=== PATIENT | female | born 1950 | race Caucasian/White ===

== ENCOUNTER 2020-01-17 18:00 | Observation (INO) | payer MEDICARE, OTHER, SELFPAY ==
[2020-01-17] VITALS (10 sets, daily range): BP systolic 103–161; BP diastolic 59–77; PULSE 56–71; RESP 12–24; TEMP 36.7–36.9; O2SAT 93–99; BMI 27.4
--- NOTE | 2020-01-17 18:06 | DI.RAD.S_ITS ---
PROCEDURE: XR CHEST 1V INDICATIONS: chest pain TECHNIQUE: One view of the chest was acquired. COMPARISON: None. FINDINGS: Surgical changes and devices: None. Lungs and pleura: Lungs are clear. There is hyperinflation of the lungs with flattening of the hemidiaphragms compatible with COPD. No pleural effusions or pneumothorax. Mediastinum: Mediastinal contours appear normal. Heart size is normal. Bones and chest wall: No suspicious bony lesions. Overlying soft tissues appear unremarkable. IMPRESSION: 1. Findings compatible with COPD without acute consolidation. Dictated by: Carlos Dallas M.D. on 01/17/2020 at 19:43 Approved by: Carlos Dallas M.D. on 01/17/2020 at 19:43
--- NOTE | 2020-01-17 18:16 | ED.CHESTPAIN ---
HPI - Chest Pain General Chief Complaint: Chest Pain Stated Complaint: Chest pain Time Seen by Provider: 01/17/20 18:01 Source: patient Mode of arrival: Ambulatory Limitations: no limitations History of Present Illness HPI narrative: 69-year-old female nonsmoker with no significant medical history her and a chief complaint of a rather sudden onset retrosternal chest discomfort with radiation to her back that started at about 5:45 p.m. tonight. She denies any exertional symptoms, she denies any provocation or palliation. She denies associated symptoms such as dizziness, weakness, lightheadedness or shortness of breath. She denies nausea, vomiting or unexplained diaphoresis. She denies any recent change in her ability to tolerate exercise. She denies recent travel, cough with hemoptysis history of cancer or blood clot. She has not been exposed to any persons known to have COVID-19. She denies runny nose, sore throat, fever or chills. MD complaint: chest pain Onset (ago): hour(s) Duration: constant Onset: during rest Pain location: substernal Severity: moderate Quality: tightness and aching Pain radiation: back Relieving factors: nothing Exacerbating factors: nothing Treatments prior to arrival chest pain: aspirin (81mg this morning and 2 full dose (325mg) at onset of pain) Related Data Home Medications Medication Instructions Recorded Confirmed simvastatin [Zocor] 40 mg PO BEDTIME 01/17/20 01/17/20 Allergies Allergy/AdvReac Type Severity Reaction Status Date / Time No Known Drug Allergies Allergy Verified 01/17/20 21:45 Review of Systems Constitutional Constitutional: Denies chills, Denies fatigue, Denies fever(s), Denies frequent falls, Denies lethargy and Denies weakness Eyes Eyes: Denies change in vision, Denies eye discharge, Denies irritation and Denies loss of vision ENT Ears, Nose, Mouth, and Throat: Denies change in voice, Denies dizziness, Denies neck pain, Denies sore throat and Denies throat swelling Cardiovascular Cardiovascular: Reports chest pain, Denies irregular heart rhythm, Denies lightheadedness, Denies palpitations, Denies dyspnea, Denies dyspnea on exertion and Denies orthopnea Respiratory Respiratory: Denies cough, Denies dyspnea, Denies dyspnea on exertion and Denies wheezing Gastrointestinal Gastrointestinal: Denies abdominal pain, Denies change in bowel habits, Denies diarrhea, Denies nausea and Denies vomiting Musculoskeletal Musculoskeletal: Denies neck pain and Denies numbness Integumentary/Breasts Skin/Breast: Denies pruritus, Denies erythema, Denies rash and Denies wounds Neurologic Neurologic: Denies behavioral changes, Denies confusion, Denies dizziness, Denies frequent falls, Denies loss of vision, Denies numbness and Denies weakness Psychiatric Psychiatric: Denies anxiety, Denies behavioral changes, Denies confusion, Denies depression, Denies homicidal ideation and Denies suicidal ideation Endocrine Endocrine: Denies fatigue, Denies flushing and Denies palpitations Hematologic/Lymphatic Hematologic/Lymphatic: Denies easy bruising Allergic/Immunologic Allergic/Immunologic: Denies urticaria, Denies throat swelling and Denies wheezing Patient History Social History household members: none Smoking Status: Former smoker Smoking Status: Former smoker alcohol intake frequency: 0-2 drinks per day Substance Use Type: does not use Exam Narrative Exam Narrative: GENERAL: [69] year old patient appears stated age. Well-nourished, well-developed patient, in mild distress. HEAD: Atraumatic. Normocephalic. EYES: Pupils equal round and reactive. Extraocular motions intact. No scleral icterus. No injection or drainage. ENT: Nose without bleeding, purulent drainage. Throat without erythema, tonsillar hypertrophy or exudate. Airway patent. NECK: Trachea midline. Non tender CARDIOVASCULAR: Regular rate and rhythm without murmurs, gallops, or rubs. RESPIRATORY: Clear to auscultation. Breath sounds equal bilaterally. No wheezes, rales, or rhonchi. GASTROINTESTINAL: Abdomen soft, non-tender, nondistended. EXTREMITIES: No edema or joint tenderness. BACK: Nontender without deformity or crepitance. No flank tenderness. NEURO: AOx3. SKIN: No rash or erythema of visible areas Initial Vital Signs Initial Vital Signs: Vital Signs Pulse Rate 69 01/17/20 18:04 Respiratory Rate 22 01/17/20 18:04 Blood Pressure 161/77 H 01/17/20 18:04 Pulse Oximetry 99 01/17/20 18:04 Course Course Course Narrative: HEART Pathway for Early Discharge in Acute Chest Pain from [facility].[email or web address] on 01/17/2020 All calculations should be rechecked by clinician prior to use RESULT SUMMARY: 4 points HEART Pathway Score High risk 12-65% 30-day MACE Admit to hospital or observation. Further testing indicated. INPUTS: History ?> 1 = Moderately suspicious EKG ?> 0 = Normal Age ?> 2 = ?67 Risk factors ?> 1 = 1-2 risk factors Initial troponin ?> 0 = ?normal limit Orders Ordered: ED Orders 01/17/20 17:20 Complete Blood Count AUTO DIFF Stat Comprehensive Metabolic Panel Stat Lipase Stat Partial Thromboplastin Time Stat Prothrombin Time INR Stat Troponin & CK Cardiac Panel Stat 01/17/20 18:01 EKG-12 Lead Stat 01/17/20 18:06 XR chest 1V Stat EKG-12 Lead Stat 01/17/20 18:15 D Dimer Stat 01/17/20 20:19 Troponin I Stat 01/17/20 22:00 COVID19 -ED/INPAT/OR/L&D Stat Aspirin (Aspirin Ec) 81 mg PO DAILY [facility] Enoxaparin Sodium (Lovenox) 40 mg SUBCUT DAILY [facility] Morphine Sulfate (Morphine) 2 mg IV Q5MIN PRN PRN Reason: Chest Pain Naloxone HCl (Narcan) 0.2 mg IV Q2MIN PRN PRN Reason: Opiate Reversal Nitroglycerin (Nitrostat) 0.4 mg SL [id number] PRN PRN Reason: Chest Pain Last Admin: 01/17/20 19:27 Dose: 0.4 mg Documented by: Admin: 01/17/20 18:31 Dose: 0.4 mg Documented by: DOUG Nitroglycerin (Nitrostat) 0.4 mg SL [id number] PRN PRN Reason: Chest Pain Ondansetron HCl (Zofran) 4 mg IV Q8HR PRN PRN Reason: Nausea And Vomiting Reevaluation(s) Reevaluation #1: pain from 5/10 to 3/10 after 1st nitro. No headache Vital Signs Vital signs: Vital Signs - 8 hr 01/17/20 18:04 01/17/20 18:35 01/17/20 19:00 Pulse Rate 69 69 58 L Respiratory Rate 22 23 12 Blood Pressure 161/77 H Pulse Oximetry 99 96 96 01/17/20 19:30 01/17/20 19:42 01/17/20 20:00 Pulse Rate 71 64 57 L Respiratory Rate 23 23 24 Blood Pressure 103/59 L Pulse Oximetry 93 94 94 01/17/20 20:09 01/17/20 20:30 Pulse Rate 57 L 56 L Respiratory Rate 19 23 Blood Pressure 122/64 Pulse Oximetry 94 96 MDM - Chest Pain Lab Data Result diagrams: 01/17/20 17:20 01/17/20 17:20 Labs: Lab Results 01/17/20 01/17/20 01/17/20 Range/Units 17:20 17:20 17:20 WBC 9.9 (4.5-11.0) X10^3/uL RBC 4.40 (4.0-5.2) X10^6/uL Hgb 13.5 (12.0-16.0) g/dL Hct 39.7 (36-46) % MCV 90.4 (80-100) fL MCH 30.6 (26-34) PG MCHC 33.9 (30-36) % RDW 13.2 (11.6-14.8) % Plt Count 331 (150-400) X10^3/uL Neut % (Auto) 61.0 (50-75) % Lymph % (Auto) 29.5 (25-40) % [place] % (Auto) 7.5 (3-14) % Eos % (Auto) 1.3 L (2-4) % Baso % (Auto) 0.7 (0-2) % Neut # (Auto) 6100 (5051-5723) /uL Lymph # (Auto) 2900 (8036-2137) /uL [place] # (Auto) 700 (0-900) /uL Eos # (Auto) 100 (0-450) /uL Baso # (Auto) 100 (0-100) /uL PT 11.6 (10.1-12.7) SECONDS INR 1.0 (0.9-1.3) APTT 30 (26.4-36.2) SECONDS D-Dimer (<230) ng/mL Sodium 136 L (137-145) mmol/L Potassium 4.5 (3.4-5.1) mmol/L Chloride 102 (98-107) mmol/L Carbon Dioxide 28 (22-32) mmol/L BUN 14 (7-17) mg/dL Creatinine 0.78 (0.52-1.04) mg/dL Estimated GFR > 60.0 (>60) mL/min BUN/Creatinine Ratio 17.9 (6-22) Glucose 106 (80-110) mg/dL Hemoglobin A1c (4.0-6.0) % Calcium 9.6 (8.4-10.2) mg/dL Total Bilirubin 1.0 (0.2-1.3) mg/dL AST 32 (14-36) IU/L ALT 21 (<35) IU/L Alkaline Phosphatase 57 (38-126) U/L Total Creatine Kinase 77 (30-135) U/L CK-MB (CK-2) TNP CK-MB (CK-2) Rel Index TNP Troponin I < 0.012 (0.01-0.034) ng/mL Total Protein 7.9 (6.3-8.2) g/dL Albumin 4.6 (3.5-5.0) g/dL Globulin 3.3 (1.7-4.1) g/dL Albumin/Globulin Ratio 1.4 (1.0-2.8) Lipase 67 (23-300) U/L COVID-19 PCR (Negative) 01/17/20 01/17/20 01/17/20 Range/Units 17:20 18:15 20:19 WBC (4.5-11.0) X10^3/uL RBC (4.0-5.2) X10^6/uL Hgb (12.0-16.0) g/dL Hct (36-46) % MCV (80-100) fL MCH (26-34) PG MCHC (30-36) % RDW (11.6-14.8) % Plt Count (150-400) X10^3/uL Neut % (Auto) (50-75) % Lymph % (Auto) (25-40) % [place] % (Auto) (3-14) % Eos % (Auto) (2-4) % Baso % (Auto) (0-2) % Neut # (Auto) (1982-9969) /uL Lymph # (Auto) (3791-6284) /uL [place] # (Auto) (0-900) /uL Eos # (Auto) (0-450) /uL Baso # (Auto) (0-100) /uL PT (10.1-12.7) SECONDS INR (0.9-1.3) APTT (26.4-36.2) SECONDS D-Dimer 269 H (<230) ng/mL Sodium (137-145) mmol/L Potassium (3.4-5.1) mmol/L Chloride (98-107) mmol/L Carbon Dioxide (22-32) mmol/L BUN (7-17) mg/dL Creatinine (0.52-1.04) mg/dL Estimated GFR (>60) mL/min BUN/Creatinine Ratio (6-22) Glucose (80-110) mg/dL Hemoglobin A1c 5.1 (4.0-6.0) % Calcium (8.4-10.2) mg/dL Total Bilirubin (0.2-1.3) mg/dL AST (14-36) IU/L ALT (<35) IU/L Alkaline Phosphatase (38-126) U/L Total Creatine Kinase (30-135) U/L CK-MB (CK-2) CK-MB (CK-2) Rel Index Troponin I < 0.012 (0.01-0.034) ng/mL Total Protein (6.3-8.2) g/dL Albumin (3.5-5.0) g/dL Globulin (1.7-4.1) g/dL Albumin/Globulin Ratio (1.0-2.8) Lipase (23-300) U/L COVID-19 PCR (Negative) 01/17/20 Range/Units 22:00 WBC (4.5-11.0) X10^3/uL RBC (4.0-5.2) X10^6/uL Hgb (12.0-16.0) g/dL Hct (36-46) % MCV (80-100) fL MCH (26-34) PG MCHC (30-36) % RDW (11.6-14.8) % Plt Count (150-400) X10^3/uL Neut % (Auto) (50-75) % Lymph % (Auto) (25-40) % [place] % (Auto) (3-14) % Eos % (Auto) (2-4) % Baso % (Auto) (0-2) % Neut # (Auto) (3503-7734) /uL Lymph # (Auto) (3051-6261) /uL [place] # (Auto) (0-900) /uL Eos # (Auto) (0-450) /uL Baso # (Auto) (0-100) /uL PT (10.1-12.7) SECONDS INR (0.9-1.3) APTT (26.4-36.2) SECONDS D-Dimer (<230) ng/mL Sodium (137-145) mmol/L Potassium (3.4-5.1) mmol/L Chloride (98-107) mmol/L Carbon Dioxide (22-32) mmol/L BUN (7-17) mg/dL Creatinine (0.52-1.04) mg/dL Estimated GFR (>60) mL/min BUN/Creatinine Ratio (6-22) Glucose (80-110) mg/dL Hemoglobin A1c (4.0-6.0) % Calcium (8.4-10.2) mg/dL Total Bilirubin (0.2-1.3) mg/dL AST (14-36) IU/L ALT (<35) IU/L Alkaline Phosphatase (38-126) U/L Total Creatine Kinase (30-135) U/L CK-MB (CK-2) CK-MB (CK-2) Rel Index Troponin I (0.01-0.034) ng/mL Total Protein (6.3-8.2) g/dL Albumin (3.5-5.0) g/dL Globulin (1.7-4.1) g/dL Albumin/Globulin Ratio (1.0-2.8) Lipase (23-300) U/L COVID-19 PCR Negative (Negative) Imaging Data Chest x-ray: Radiologist's Impression: [address] [address] XRay Report Signed Patient: Kim Pelaez EMR#: [id number] : [id number]:[id number] Age/Sex: 69 / FDate of Service: 01/17/20 Loc: ED Accession Number: [id number] Procedure: XR chest 1V Ordering Provider: Rip Leggett D.O. PROCEDURE: XR CHEST 1V INDICATIONS: chest pain TECHNIQUE: One view of the chest was acquired. COMPARISON: None. FINDINGS: Surgical changes and devices: None. Lungs and pleura: Lungs are clear. There is hyperinflation of the lungs with flattening of the hemidiaphragms compatible with COPD. No pleural effusions or pneumothorax. Mediastinum: Mediastinal contours appear normal. Heart size is normal. Bones and chest wall: No suspicious bony lesions. Overlying soft tissues appear unremarkable. IMPRESSION: 1. Findings compatible with COPD without acute consolidation. Dictated by: Carlos Dallas M.D. on 01/17/2020 at 19:43 Approved by: Carlos Dallas M.D. on 01/17/2020 at 19:43 Discharge Plan Departure Patient Disposition: Admitted as Observation Clinical Impression: Chest pain Qualifiers: Chest pain type: unspecified Qualified Code(s): R07.9 - Chest pain, unspecified Discharge Date/Time: 01/17/20 22:35 Referrals: Martha Haskins MD [Primary Care Provider] - Admit Date/Time: 01/17/20 22:02 Admit Provider: Kalani Martinez
--- NOTE | 2020-01-17 18:24 | PC.NURSE ---
iv placed labs drawn md at bedside for eval pt resting in bed vs on planner/scheduler family at bedside for eval
[2020-01-17 18:27] LABS: Add Manual Diff / Slide Review NO; Basophils Absolute Auto 100 /uL (0-100); Basophils Percent Auto 0.7 % (0-2); Eosinophils Absolute Auto 100 /uL (0-450); Eosinophils Percent Auto 1.3 % (2-4); Hematocrit 39.7 % (36-46); Hemoglobin 13.5 g/dL (12.0-16.0); Lymphocytes Absolute Auto 2900 /uL (1100-4500); Lymphocytes Percent Auto 29.5 % (25-40); Mean Corpuscular HGB Conc 33.9 % (30-36); Mean Corpuscular Hemoglobin 30.6 PG (26-34); Mean Corpuscular Volume 90.4 fL (80-100); Monocytes Absolute Auto 700 /uL (0-900); Monocytes Percent Auto 7.5 % (3-14); Neutrophils Absolute Auto 6100 /uL (1500-7000); Platelet Count 331 X10^3/uL (150-400); Red Cell Distribution Width 13.2 % (11.6-14.8); White Blood Cell Count 9.9 X10^3/uL (4.5-11.0)
[2020-01-17] MEDS: NITROGLYCERIN 0.4 MG SL TAB SL ×2 (18:31→19:27)
[2020-01-17 18:36] LABS: Prothrombin Time 11.6 SECONDS (10.1-12.7)
[2020-01-17 18:39] LABS: PTT Partial Thromboplastin Tim 30 SECONDS (26.4-36.2)
[2020-01-17 18:40] LABS: Alanine Aminotransferase 21 IU/L (<35); Albumin 4.6 g/dL (3.5-5.0); Albumin Globulin Ratio 1.4 (1.0-2.8); Alkaline Phosphatase 57 U/L (38-126); Aspartate Aminotransferase 32 IU/L (14-36); BUN Creatinine Ratio 17.9 (6-22); Blood Urea Nitrogen 14 mg/dL (7-17); Calcium 9.6 mg/dL (8.4-10.2); Carbon Dioxide 28 mmol/L (22-32); Chloride 102 mmol/L (98-107); Creatine Kinase 77 U/L (30-135); Estimated Glomerular Filt Rate > 60.0 mL/min (>60); Globulin 3.3 g/dL (1.7-4.1); Glucose 106 mg/dL (80-110); HEMOLYSIS < 15 (0-50); Lipase 67 U/L (23-300); Potassium 4.5 mmol/L (3.4-5.1); Sodium 136 mmol/L (137-145); Total Protein 7.9 g/dL (6.3-8.2)
[2020-01-17 18:42] LABS: D Dimer 269 ng/mL (<230)
[2020-01-17 18:52] LABS: Troponin I < 0.012 ng/mL (0.01-0.034)
[2020-01-17 20:49] LABS: Troponin I < 0.012 ng/mL (0.01-0.034)
--- NOTE | 2020-01-17 21:01 | PC.NURSE ---
md at bedside reviewing results with pt
[2020-01-17 22:22] LABS: COVID19 -Nasal RAPID Negative (Negative)
[2020-01-17 22:26] LABS: Hemoglobin A1C% w Est Avg Glu 5.1 % (4.0-6.0)
--- NOTE | 2020-01-17 22:59 | P.HP_ITS ---
History of Present Illness History of Present Illness Date Patient Seen: 01/17/20 Time Patient Seen: 22:59 Date of Onset of Symptoms: 01/17/20 Chief complaint: Chest pain Narrative: Kim Pelaez is a 69 y.o. female with hyperlipidemia who was in her usual state of health when she was [place] when she developed crampy- like pressure in her chest. It persisted until she presented to the ED and was administered 2 does of nitroglycerin. She denies headaches or visual changes, shortness of breath, cough, dyspepsia, nausea or vomiting, dysurea, diarrhea or constipation. Last lipid panel done 14 months ago appeared to have cholesterol under good control. Patient was stated to have a HEART score of 4. EKG reviewed and other than sinus bradycardia, and appeared normal. Patient's symptoms resolved after 2 doses of nitroglycerin. Chest x-ray indicated COPD however this would be unlikely given patient's nonsmoking history unless there was a secondhand smoke exposure. Patient was afebrile, blood pressure 131/69, heart rate 57, respiratory rate 16, oxygen saturation 90% on room air, she weighs 68 kg with a BMI of 27.4. CBC largely within normal limits, D-dimer was technically elevated but if age adjusted was normal, BMP was within normal limits, she has a hemoglobin A1c of 5.1, liver enzymes within normal limits, troponin x2 was 0.012 and will not be repeate, COVID-19 is negative. Patient History Medical History Hyperlipidemia (Chronic) Surgical History Hx of bilateral hip replacements (Acute) Family & Social History Family History Mother Thyroid disease Father Congestive heart failure Social History: household members none Prior Living Arrangements House Safety & Behavioral: Feels Safe in Current Yes Environment Been Physically Hurt or No Threatened By a Person Suicidal Ideation Description None Suicide Plan Description No Plan Tobacco & Substance use: Smoking Status Former smoker alcohol intake frequency 0-2 drinks per day Substance Use Type does not use Meds Home Medications and Allergies Home Medications Medication Instructions Recorded Confirmed Type simvastatin [Zocor] 40 mg PO BEDTIME 01/17/20 01/17/20 History Allergies Allergy/AdvReac Type Severity Reaction Status Date / Time No Known Drug Allergies Allergy Verified 01/17/20 21:45 Review of Systems Review of Systems ROS: Yes All systems reviewed with the patient and are negative except as otherwise documented Exam Vital Signs (past 8 hours): - 01/17/20 18:04 01/17/20 18:35 01/17/20 19:00 Temperature Pulse Rate 69 69 58 L Respiratory Rate 22 23 12 Blood Pressure 161/77 H Pulse Oximetry 99 96 96 01/17/20 19:30 01/17/20 19:42 01/17/20 20:00 Temperature Pulse Rate 71 64 57 L Respiratory Rate 23 23 24 Blood Pressure 103/59 L Pulse Oximetry 93 94 94 01/17/20 20:09 01/17/20 20:30 01/17/20 22:33 Temperature 98.5 F Pulse Rate 57 L 56 L 57 L Respiratory Rate 19 23 16 Blood Pressure 122/64 131/69 Pulse Oximetry 94 96 98 Oxygen Delivery Method Room Air Oxygen Flow Rate 0 Objective Labs Result Diagrams: 01/17/20 17:20 01/17/20 17:20 Labs: Laboratory Results - last 24 hr 01/17/20 01/17/20 01/17/20 17:20 17:20 17:20 WBC 9.9 RBC 4.40 Hgb 13.5 Hct 39.7 MCV 90.4 MCH 30.6 MCHC 33.9 RDW 13.2 Plt Count 331 Neut % (Auto) 61.0 Lymph % (Auto) 29.5 [place] % (Auto) 7.5 Eos % (Auto) 1.3 L Baso % (Auto) 0.7 Neut # (Auto) 6100 Lymph # (Auto) 2900 [place] # (Auto) 700 Eos # (Auto) 100 Baso # (Auto) 100 PT 11.6 INR 1.0 APTT 30 D-Dimer Sodium 136 L Potassium 4.5 Chloride 102 Carbon Dioxide 28 BUN 14 Creatinine 0.78 Estimated GFR > 60.0 BUN/Creatinine Ratio 17.9 Glucose 106 Hemoglobin A1c Calcium 9.6 Total Bilirubin 1.0 AST 32 ALT 21 Alkaline Phosphatase 57 Total Creatine Kinase 77 CK-MB (CK-2) TNP CK-MB (CK-2) Rel Index TNP Troponin I < 0.012 Total Protein 7.9 Albumin 4.6 Globulin 3.3 Albumin/Globulin Ratio 1.4 Lipase 67 COVID-19 PCR 01/17/20 01/17/20 01/17/20 17:20 18:15 20:19 WBC RBC Hgb Hct MCV MCH MCHC RDW Plt Count Neut % (Auto) Lymph % (Auto) [place] % (Auto) Eos % (Auto) Baso % (Auto) Neut # (Auto) Lymph # (Auto) [place] # (Auto) Eos # (Auto) Baso # (Auto) PT INR APTT D-Dimer 269 H Sodium Potassium Chloride Carbon Dioxide BUN Creatinine Estimated GFR BUN/Creatinine Ratio Glucose Hemoglobin A1c 5.1 Calcium Total Bilirubin AST ALT Alkaline Phosphatase Total Creatine Kinase CK-MB (CK-2) CK-MB (CK-2) Rel Index Troponin I < 0.012 Total Protein Albumin Globulin Albumin/Globulin Ratio Lipase COVID-19 PCR 01/17/20 22:00 WBC RBC Hgb Hct MCV MCH MCHC RDW Plt Count Neut % (Auto) Lymph % (Auto) [place] % (Auto) Eos % (Auto) Baso % (Auto) Neut # (Auto) Lymph # (Auto) [place] # (Auto) Eos # (Auto) Baso # (Auto) PT INR APTT D-Dimer Sodium Potassium Chloride Carbon Dioxide BUN Creatinine Estimated GFR BUN/Creatinine Ratio Glucose Hemoglobin A1c Calcium Total Bilirubin AST ALT Alkaline Phosphatase Total Creatine Kinase CK-MB (CK-2) CK-MB (CK-2) Rel Index Troponin I Total Protein Albumin Globulin Albumin/Globulin Ratio Lipase COVID-19 PCR Negative Assessment & Plan Assessment & Plan narrative: Kim Pelaez is a 69-year-old female with hyperlipidemia well controlled who will be observed overnight for chest pain. Chest pin r/o ACS -Echo in am -Start ASA 81 mg -Received nitro X 2 in the ED with resolution of chest pain -EKG shows no ischemic changes High blood pressure without a diagnosis of hypertension -She is currently normotensive HLD -Lipid panel, pending -Start/continue simvastatin 40 mg po at bedtime Risk stratification -Fasting lipid panel pending for the am. -A1c was 5.1% VTE prophylaxis: Caprini risk score: 2 low risk Enoxaparin 40 mg subQ daily Consults: none Patient is observation status as her stay is not likely to exceed 2 midnights. FEN: saline lock, heart healty diet, BMP and magnesium in the am. Dispo: probable discharge to home with close followup with her PCP to set up a stress test Code Status: Full code as discussed with patient Quality VTE Deep Vein Thrombosis/Pulmonary Embolism Present on Admission: No
[2020-01-18] MEDS: ACETAMINOPHEN 325 MG TABLET 650 MG PO (00:27)
[2020-01-18 04:30] VITALS: BP 129/74; PULSE 66; RESP 16; TEMP 36.7; O2SAT 96
[2020-01-18 06:07] LABS: Add Manual Diff / Slide Review NO; Basophils Absolute Auto 100 /uL (0-100); Basophils Percent Auto 0.6 % (0-2); Eosinophils Absolute Auto 100 /uL (0-450); Eosinophils Percent Auto 1.3 % (2-4); Hematocrit 38.1 % (36-46); Hemoglobin 12.7 g/dL (12.0-16.0); Lymphocytes Absolute Auto 2900 /uL (1100-4500); Mean Corpuscular HGB Conc 33.2 % (30-36); Mean Corpuscular Volume 90.4 fL (80-100); Monocytes Absolute Auto 800 /uL (0-900); Monocytes Percent Auto 7.9 % (3-14); Neutrophils Absolute Auto 6100 /uL (1500-7000); Neutrophils Percent Auto 61.2 % (50-75); Platelet Count 305 X10^3/uL (150-400); Red Blood Cell Count 4.21 X10^6/uL (4.0-5.2); Red Cell Distribution Width 13.4 % (11.6-14.8); White Blood Cell Count 9.9 X10^3/uL (4.5-11.0)
[2020-01-18 06:14] LABS: BUN Creatinine Ratio 14.1 (6-22); Blood Urea Nitrogen 10 mg/dL (7-17); Calcium 9.3 mg/dL (8.4-10.2); Carbon Dioxide 28 mmol/L (22-32); Chloride 106 mmol/L (98-107); Estimated Glomerular Filt Rate > 60.0 mL/min (>60); Glucose 93 mg/dL (80-110); HEMOLYSIS < 15 (0-50); Magnesium 2.2 mg/dL (1.6-2.3); Sodium 137 mmol/L (137-145)
[2020-01-18 06:28] LABS: Cholesterol 163 mg/dL (140-199); HDL Cholesterol 69 mg/dL (40-60); LDL Cholesterol Calculated 75 mg/dL (<100); Triglycerides 96 mg/dL (35-150)
[2020-01-18 08:29] VITALS: BP 129/69; PULSE 106; RESP 16; TEMP 36.3; O2SAT 96
[2020-01-18 08:51] LABS: Creatine Kinase 51 U/L (30-135)
[2020-01-18 09:02] LABS: Troponin I < 0.012 ng/mL (0.01-0.034)
[2020-01-18] MEDS: ASPIRIN EC 81 MG TABLET PO (09:47)
[2020-01-18] MEDS: SODIUM CHLORIDE 0.9% FLUSH 10 ML IV (09:48)
--- NOTE | 2020-01-18 11:21 | DI.ECHO.S_ITS ---
Echocardiogram Report + + :Name: FLAKO CORRAL Study Date: 01/18/2020 Height: 62 in : :[facility] Weight: 150 lb : : Gender: Female BSA: 1.7 m2 : :: 1950 Age: 69 yrs BP: 129/69 mmHg: :Reason For Study: CHEST PAIN : :Ordering Physician: : :SAULISTBRENDA Performed By: Mercedes Montana : :Referring: MERRY VALENCIA : + + Interpretation Summary The left ventricle is normal in size and wall thickness. The ejection fraction is estimated to be 55-60%. The right ventricle is normal in size and function. There is mild tricuspid regurgitation. The right ventricular systolic pressure is estimated to be at least 25 mmHg based on an estimated right atrial pressure of 3 mm Hg. Mild atherosclerotic plaque(s) in the aortic arch. Procedure: A two-dimensional transthoracic echocardiogram with color flow and Doppler was performed. The study quality was technically adequate. There is no prior echocardiogram noted for this patient. The patient was in sinus bradycardia with heart rates between 57-65 bpm during the exam. Left Ventricle: The left ventricle is normal in size and wall thickness. There is no thrombus. A false chord is noted (normal variant). The ejection fraction is estimated to be 55-60%. There are no focal wall motion abnormalities. MV E/A: 1.2 Med Peak E' José Miguel: 8.2 cm/sec E/E' med: 10.0. Right Ventricle: The right ventricle is normal in size and function. Atria: The left atrial size is normal. Right atrial size is normal. There is no Doppler evidence for an interatrial shunt. Mitral Valve: The mitral valve is normal in structure and function. There is trace mitral regurgitation. Aortic Valve: The aortic valve is trileaflet. The aortic valve opens well. There is no aortic valve stenosis. No aortic regurgitation is present. Tricuspid Valve: The tricuspid valve is normal in structure and function. The right ventricular systolic pressure is estimated to be at least 25 mmHg based on an estimated right atrial pressure of 3 mm Hg. There is mild tricuspid regurgitation. Pulmonic Valve: The pulmonic valve leaflets are thin and pliable; valve motion is normal. There is trace pulmonic regurgitation. Great Vessels: The aortic root is normal size. The dimensions of the ascending aorta are normal. Mild atherosclerotic plaque(s) in the aortic arch. The IVC is of normal diameter and collapses greater than 50% with a sniff. This suggests a low right atrial pressure of 3 mm Hg. Pericardium/ Pleura There is no pericardial effusion. There is no pleural effusion. MMode/2D Measurements & Calculations LVIDd: 5.0 cm LVOT diam: 1.9 cm LVIDs: 3.2 cm Ao root diam: 3.0 cm FS: 36.0 % asc Aorta Diam: 3.1 cm EPSS: 0.46 cm Ao Arch Diam (Prox Trans): 2.8 cm IVSd: 0.55 cm LVPWd: 0.85 cm LV arellano. diameter/BSA (cm/m^2): 3.0 LV sys. diameter/BSA (cm/m^2): 1.9 LA A2 area: 16.3 cm2 RA long axis: 4.6 cm LA A4 area: 14.5 cm2 RA area: 14.0 cm2 LA length (vol): 4.8 cm RA vol: 36.3 ml LA vol: 41.5 ml RA : 21.5 ml/m2 LA vol index: 24.5 ml/m2 IVC diam: 1.4 cm RVD1 (basal): 3.1 cm TAPSE: 1.8 cm Doppler Measurements & Calculations Ao V2 max: 148.2 cm/sec LVOT Max José Miguel: 116.3 cm/sec Ao V2 mean: 93.9 cm/sec LV V1 max P.4 mmHg Ao max P.8 mmHg LV V1 VTI: 26.9 cm Ao mean P.2 mmHg YANE(I,D): 2.3 cm2 Ao V2 VTI: 33.6 cm YANE(V,D): 2.3 cm2 sev ratio: 0.80 YANE indexed to BSA (cm^2/m^2): 1.4 MV E max josé miguel: 82.7 cm/sec TR max josé miguel: 234.0 cm/sec MV A max josé miguel: 67.0 cm/sec TR max P.9 mmHg MV E/A: 1.2 PA V2 max: 78.7 cm/sec Med Peak E' José Miguel: 8.2 cm/sec PA V2 mean: 46.7 cm/sec E/E' med: 10.0 PA mean P.1 mmHg Lat Peak E' José Miguel: 9.6 cm/sec PA pr(Accel): 56.7 mmHg E/E' lat: 8.7 E/e' average: 9.3 MV dec time: 0.21 sec SV(LVOT): 77.1 ml Reading Physician:02:34 PM
--- NOTE | 2020-01-18 12:42 | CM.DANOTE ---
DCP: Case received, EMR reviewed and met with patient. Introduced self and role. Was able to meet with patient to obtain information regarding her baseline activity status prior to hospitalization. DCP assessment completed with information currently available. Patient is a 69 year old female who admitted yesterday evening to the care of the hospitalist team. PCP: Dr. Martha Haskins. Payer: confirmed: Medicare/[facility]. Patient came to the hospital via private vehicle secondary to her having chest pain. She is here for a cardiac work up, and an echo is planned. Met with patient in her room. She is alert and oriented, eager to go home. She is independent, and resids in [place] with her spouse, Dave. He was at bedside during team rounds. She drives, and is retired. P: Patient is to be discharged home today after all of her testing is complete. Nanda Sandoval RN/Merch[employer] Flow Team Member
[2020-01-18 12:45] VITALS: BP 123/73; PULSE 70; RESP 16; TEMP 36.1; O2SAT 97
--- NOTE | 2020-01-18 15:17 | P.DS_ITS ---
History of Present Illness History of Present Illness Date Patient Seen: 01/17/20 Chief complaint: Chest pain Narrative: Written by Kalani HAILE: Kim Pelaez is a 69 y.o. 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 It persisted until she presented to the ED and was administered 2 does of nitroglycerin. She denies headaches or visual changes, shortness of breath, cough, dyspepsia, nausea or vomiting, dysurea, diarrhea or constipation. Last lipid panel done 14 months ago appeared to have cholesterol under good control. Patient was stated to have a HEART score of 4. EKG reviewed and other than sinus bradycardia, and appeared normal. Patient's symptoms resolved after 2 doses of nitroglycerin. Chest x-ray indicated COPD however this would be u nlikely given patient's nonsmoking history unless there was a secondhand smoke exposure. Patient was afebrile, blood pressure 131/69, heart rate 57, respiratory rate 16, oxygen saturation 90% on room air, she weighs 68 kg with a BMI of 27.4. CBC largely within normal limits, D-dimer was technically elevated but if age adjusted was normal, BMP was within normal limits, she has a hemoglobin A1c of 5.1, liver enzymes within normal limits, troponin x2 was 0.012 and will not be repeate, COVID-19 is negative. Discharge Providers Provider Date of admission: 01/17/20 22:02 Discharge Date: 01/18/20 Primary care physician: Martha Haskins MD Discharge provider: Yuliana Lemos DO Summary Hospital Course Discharge Diagnosis: 1. Acute chest pain, present on admission. Resolved. 2. Ruled out hypertension. 3. Hyperlipidemia, chronic, present on admission. Stable. Hospital Course: Serene Pelaez is a 69-year-old female with a past medical history significant for hyperlipidemia who presented to ED with sudden onset substernal chest discomfort with radiation to her back. 1. Acute chest pain, present on admission. Resolved. -Patient presented with sudden onset substernal chest discomfort with radiation to her back and no other associated symptoms and relieved with SL nitroglycerin x 2. -Cardiac risk factors include: Hyperlipidemia -EKG demonstrated sinus rhythm without acute ischemic changes such as ST elevation or depression. Continued to monitor closely on telemetry. Patient remained in sinus rhythm throughout hospitalization without significant ectopy. -Trended serial troponins x3 which were negative < 0.012. -Risk stratified with hemoglobin A1c which was normal at 5.1% indicative of prediabetes and and fasting lipid panel which demonstrated fair lipid control with: Total cholesterol 163, triglyceride 96, LDL 103 (goal <100) and HDL 69. -Echocardiogram unremarkable and did not demonstrate any wall motion abnormalities. LV is normal size, wall thickness and function with EF 55-60%, no focal wall motion abnormalities, RV is normal size and function, mild tricuspid regurgitation, RVSP is estimated to be at least 25 mmHg based on an estimated right atrial pressure of 3 mm Hg, mild atherosclerotic plaque(s) in the aortic arch. -Ordered nitroglycerin 0.4 mg sublingual every 5 minutes as needed for chest pain and morphine 2 mg every 5 minutes as needed for chest pain not relieved wit h nitroglycerin. Discharged home with prescription of nitroglycerin. -Continued aspirin 81 mg weekly and and simvastatin 40 mg daily at bedtime. -Recommended outpatient cardiac stress test in the next 1-2 weeks per PCP. 2. Ruled out hypertension. -Patient had one elevated BP measurement on admission 161/77 and normalized. She remained normotensive throughout hospitlization. 3. Hyperlipidemia, chronic, present on admission. Stable. -Fasting lipid panel demonstated fair lipid control as above. -Continued home simvastatin 40 mg daily at bedtime and recommended and counseled on lifestyle modification including: diet and exercise. Exam Vital Signs (past 8 hours): - 01/18/20 08:29 01/18/20 12:45 Temperature 97.3 F L 97.0 F L Pulse Rate 106 H 70 Respiratory Rate 16 16 Blood Pressure 129/69 123/73 Pulse Oximetry 96 97 Oxygen Delivery Method Room Air Oxygen Flow Rate 0 Narrative Exam Narrative: General: Middle aged female sitting in bed and in no acute distress, well- developed, well-nourished, appropriately interactive. HEENT: Normocephalic, atraumatic. External ears without defect. Pupils equal, round, and reactive to light. Anicteric sclerae, moist conjunctivae, and no lid lag. Oropharynx free of erythema and cobble stoning with moist mucosa. Neck: Supple with full range of motion. No jugular venous distension. No bruits. No lymphadenopathy or thyromegaly. Cardiovascular: Regular rate and rhythm without murmurs, rubs, or gallops appreciated Pulmonary: Clear to auscultation bilaterally without crackles, wheezes, or rhonchi. Normal respiratory effort with no use of accessory muscles. Abdomen: Soft, bowel tones present, nontender, nondistended. No hepatosplenomegaly or masses appreciated. Extremities: No clubbing, cyanosis, or edema. Skin: Normal temperature, turgor, and texture; no rash, ulcers, or subcutaneous nodules appreciated. Neurological: Cranial nerves grossly intact. Psychiatric: Normal mood and affect. Alert and oriented to person, place, and time. Objective Labs Result Diagrams: 01/18/20 05:33 01/18/20 05:33 Labs: Laboratory Results - last 24 hr 01/17/20 01/17/20 01/17/20 17:20 17:20 17:20 WBC 9.9 RBC 4.40 Hgb 13.5 Hct 39.7 MCV 90.4 MCH 30.6 MCHC 33.9 RDW 13.2 Plt Count 331 Neut % (Auto) 61.0 Lymph % (Auto) 29.5 [place] % (Auto) 7.5 Eos % (Auto) 1.3 L Baso % (Auto) 0.7 Neut # (Auto) 6100 Lymph # (Auto) 2900 [place] # (Auto) 700 Eos # (Auto) 100 Baso # (Auto) 100 PT 11.6 INR 1.0 APTT 30 D-Dimer Sodium 136 L Potassium 4.5 Chloride 102 Carbon Dioxide 28 BUN 14 Creatinine 0.78 Estimated GFR > 60.0 BUN/Creatinine Ratio 17.9 Glucose 106 Hemoglobin A1c Calcium 9.6 Magnesium Total Bilirubin 1.0 AST 32 ALT 21 Alkaline Phosphatase 57 Total Creatine Kinase 77 CK-MB (CK-2) TNP CK-MB (CK-2) Rel Index TNP Troponin I < 0.012 Total Protein 7.9 Albumin 4.6 Globulin 3.3 Albumin/Globulin Ratio 1.4 Triglycerides Cholesterol LDL Cholesterol, Calc HDL Cholesterol Lipase 67 COVID-19 PCR 01/17/20 01/17/20 01/17/20 17:20 18:15 20:19 WBC RBC Hgb Hct MCV MCH MCHC RDW Plt Count Neut % (Auto) Lymph % (Auto) [place] % (Auto) Eos % (Auto) Baso % (Auto) Neut # (Auto) Lymph # (Auto) [place] # (Auto) Eos # (Auto) Baso # (Auto) PT INR APTT D-Dimer 269 H Sodium Potassium Chloride Carbon Dioxide BUN Creatinine Estimated GFR BUN/Creatinine Ratio Glucose Hemoglobin A1c 5.1 Calcium Magnesium Total Bilirubin AST ALT Alkaline Phosphatase Total Creatine Kinase CK-MB (CK-2) CK-MB (CK-2) Rel Index Troponin I < 0.012 Total Protein Albumin Globulin Albumin/Globulin Ratio Triglycerides Cholesterol LDL Cholesterol, Calc HDL Cholesterol Lipase COVID-19 PCR 01/17/20 01/18/20 01/18/20 22:00 05:33 05:33 WBC 9.9 RBC 4.21 Hgb 12.7 Hct 38.1 MCV 90.4 MCH 30.0 MCHC 33.2 RDW 13.4 Plt Count 305 Neut % (Auto) 61.2 Lymph % (Auto) 29.0 [place] % (Auto) 7.9 Eos % (Auto) 1.3 L Baso % (Auto) 0.6 Neut # (Auto) 6100 Lymph # (Auto) 2900 [place] # (Auto) 800 Eos # (Auto) 100 Baso # (Auto) 100 PT INR APTT D-Dimer Sodium Potassium Chloride Carbon Dioxide BUN Creatinine Estimated GFR BUN/Creatinine Ratio Glucose Hemoglobin A1c Calcium Magnesium Total Bilirubin AST ALT Alkaline Phosphatase Total Creatine Kinase CK-MB (CK-2) CK-MB (CK-2) Rel Index Troponin I Total Protein Albumin Globulin Albumin/Globulin Ratio Triglycerides 96 Cholesterol 163 LDL Cholesterol, Calc 75 HDL Cholesterol 69 H Lipase COVID-19 PCR Negative 01/18/20 01/18/20 05:33 05:33 WBC RBC Hgb Hct MCV MCH MCHC RDW Plt Count Neut % (Auto) Lymph % (Auto) [place] % (Auto) Eos % (Auto) Baso % (Auto) Neut # (Auto) Lymph # (Auto) [place] # (Auto) Eos # (Auto) Baso # (Auto) PT INR APTT D-Dimer Sodium 137 Potassium 4.0 Chloride 106 Carbon Dioxide 28 BUN 10 Creatinine 0.71 Estimated GFR > 60.0 BUN/Creatinine Ratio 14.1 Glucose 93 Hemoglobin A1c Calcium 9.3 Magnesium 2.2 Total Bilirubin AST ALT Alkaline Phosphatase Total Creatine Kinase 51 CK-MB (CK-2) TNP CK-MB (CK-2) Rel Index TNP Troponin I < 0.012 Total Protein Albumin Globulin Albumin/Globulin Ratio Triglycerides Cholesterol LDL Cholesterol, Calc HDL Cholesterol Lipase COVID-19 PCR Discharge Plan Discharge Plan Patient Disposition: Home Discharge comment: You are being discharged home. You have no evidence of heart attack or impending heart attack. Your EKG and heart monitoring was normal Your heart enzymes were normal. Your echocardiogram did not show any changes of your heart to suggest heart attack. Your cholesterol is well controlled on simvastatin. You are not diabetic. You were provided a prescription for nitroglycerin to use if needed for chest pain. If your chest pain recurs please seek medical attention immediately. Recommend outpatient stress test. Please follow-up with your primary care physician, Dr. Haskins, in the next 1 week regarding your hospitalization and referral for stress test. Discharge orders & Medications Prescriptions: New aspirin 81 mg Tablet,Delayed Release (Dr/Ec) 81 mg PO DAILY Qty: 30 RF: 0 nitroglycerin [Nitrostat] 0.4 mg Tablet, Sublingual 0.4 mg sublingual [id number] PRN (Reason: Chest Pain) Qty: 10 RF: 0 Continued simvastatin [Zocor] 40 mg tablet 40 mg PO BEDTIME RF: 0 Follow up/Referrals: Martha Haskins MD [Primary Care Provider] - 1 Week Diet/Activity/Treatments Diet: Low-fat, Low-sodium and Low-cholesterol Activity: Activity as tolerated Visit Report/Discharge Packet Instructions: The Mediterranean Diet and Good Health, DI for Chest Pain, Nitroglycerin Sublingual, Nitrofurantoin Visit Report Forms: Patient Portal/API, Stroke Signs & Symptoms Discharge Data Primary Care Provider: Martha Haskins Attending Provider: Kalani Martinez Admit Date/Time: 01/17/20 22:02 Discharges patient from system. Discharge Date/Time: 01/18/20 15:42 Quality VTE Deep Vein Thrombosis/Pulmonary Embolism Present on Admission: No
--- NOTE | 2020-01-18 15:40 | PC.NURSE ---
Discharge-Patient with dischargers orders. Patient agreeable for discharge back to home. Denies having any meds in pharmacy or valuables in safe. discharge instructions explained to patient and copies given. Patient refused to be taken in wheelchair to transportation. This RN walked with patient down to ED entrance.
== END 2020-01-18 15:42 | disposition home or self-care (01) ==
LOC: ED 21:11 → AC 22:02
PROVIDERS: Internal Medicine; Admitting Provider Nurse Practitioner Family; Emergency Provider Emergency Medicine; Family Provider Internal Medicine; PCP Internal Medicine; Referring Provider Emergency Medicine; Visit Provider Nurse Practitioner Family
DX: R07.9 Chest pain, unspecified (principal); E78.5 Hyperlipidemia, unspecified; Z11.59 Encounter for screening for other viral diseases
CPT/HCPCS: 36415; 71045; 80048; 80053; 80061; 82550; 83036; 83690; 83735; 84484; 85025; 85379; 85610; 85730; 87635; 93005; 93306; 99284; G0378

== ENCOUNTER → 2020-01-30 13:05 | Outpatient (CLI) | payer MEDICARE, OTHER, SELFPAY ==
[2020-01-17 22:29] VITALS: BMI 27.4
[2020-01-31 16:28] LABS: COVID19 Sendout Not Detected (Not Detect)
== END ==
PROVIDERS: Family Provider Internal Medicine; PCP Internal Medicine; Visit Provider Physician Assistant
DX: Z11.59 Encounter for screening for other viral diseases (principal)
CPT/HCPCS: 87635

== ENCOUNTER → 2020-02-02 09:28 | Outpatient (CLI) | payer MEDICARE, OTHER, SELFPAY ==
[2020-01-17 22:29] VITALS: BMI 27.4
--- NOTE | 2020-02-02 18:32 | DI.NM.S_ITS ---
DATE OF SERVICE: PROCEDURE: Exercise perfusion study. DATE OF STUDY: 02/02/2020. INDICATIONS: Chest pain with hyperlipidemia. RADIOPHARMACEUTICAL: 25.2 millicurie technetium-99m Myoview IV was injected at stress and 12.4 millicurie technetium-99m Myoview IV was injected at rest. The patient underwent exercise perfusion study under the supervision of an attending staff. She walked on Claude protocol for 7 minutes 30 seconds and achieved 98% of target heart rate with normal blood pressure response. Functional aerobic impairment 0 percent. No anginal symptoms. [place] some dyspnea. Baseline EKG revealed sinus rhythm. During stress, there were no convincing ischemic changes. There were occasional PVCs. No sustained ventricular tachycardia. RAW DATA: There was some breast shadow seen. GATED STUDY: Stress LV ejection fraction 80% and resting LV ejection fraction 72%. No obvious wall motion abnormalities. Resting end-diastolic volume 89 mL. TID ratio 0.89, which is within normal limits. Lung heart ratio 0.37, which is within normal limits. MYOCARDIAL PERFUSION SCAN: The stress supine and resting supine images reveal minimally decreased perfusion of distal anterior wall, which got resolved during prone images suggestive of breast tissue attenuation artifact. No convincing ischemia or infarction pattern. CONCLUSION: I will call this study a normal myocardial perfusion study. Fair exercise tolerance. No ischemic EKG changes. Normal hemodynamic response. Overall this is a low risk myocardial perfusion study. Kim Pelaez - RED/freddie/gumaro doc#: [id number]/job#: [id number] dd: 02/02/2020 17:46:00 dt: 02/02/2020 18:03:00 DICTATING MD/COPIES TO: Marsha Denny MD COPIES MNE: MICHELLE;
== END ==
PROVIDERS: Family Provider Internal Medicine; PCP Internal Medicine; Referring Provider Internal Medicine; Visit Provider Student in an Organized Health Care Education/Training Program
DX: R07.9 Chest pain, unspecified (principal); E78.5 Hyperlipidemia, unspecified
CPT/HCPCS: 78452; 93017; A9502

== ENCOUNTER → 2020-02-26 08:32 | Outpatient (CLI) | payer MEDICARE, OTHER, SELFPAY ==
[2020-01-17 22:29] VITALS: BMI 27.4
--- NOTE | 2020-02-26 | DI.US.S_ITS ---
PROCEDURE: US ABDOMEN COMPLETE INDICATIONS: PAIN TECHNIQUE: Real-time scanning was performed of the abdominal and retroperitoneal organs, with image documentation. COMPARISON: None. FINDINGS: Liver: Liver is normal in size and homogeneous in echotexture. Gallbladder: Solitary gallstone present. No gallbladder wall thickening or pericholecystic fluid. Negative sonographic Palm sign. Biliary ducts: Intrahepatic bile ducts are non-dilated. Extrahepatic bile duct caliber measures 6.4 mm. Normal is 6-7 mm or less in diameter, or 10 mm or less post-cholecystectomy. Pancreas: Visualized portions of the pancreas are sonographically normal. Spleen: Spleen is normal in size and homogeneous in echotexture. Kidneys: Kidneys are normal in size and echotexture. Right kidney measures 9.9 cm long; left kidney measures 10.3 cm long. No hydronephrosis or nephrolithiasis. No solid masses. Aorta: Visualized aorta is normal in caliber at less than 3 cm. Iliacs: Proximal common iliac arteries are normal in caliber at less than 2.5 cm. IVC: Intrahepatic inferior vena cava is patent. Miscellaneous: No free abdominal fluid. IMPRESSION: Cholelithiasis without acute cholecystitis. If sonographically occult acute cholecystitis is suspected, nuclear medicine HIDA scan could be performed for further evaluation. Dictated by: Dusty VEGA Interpreted: Hemant Antoine MD on 02/26/2020 at 9:21 Approved by: Hemant Antoine M.D. on 02/26/2020 at 11:05
== END ==
PROVIDERS: Family Provider Internal Medicine; PCP Internal Medicine; Referring Provider Internal Medicine; Visit Provider Internal Medicine
DX: K80.20 Calculus of gallbladder without cholecystitis without obstruction (principal)
CPT/HCPCS: 76700

== ENCOUNTER → 2020-04-25 11:45 | Outpatient (CLI) | payer MEDICARE, OTHER, SELFPAY ==
[2020-01-17 22:29] VITALS: BMI 27.4
[2020-04-25 13:49] LABS: COVID19 -Nasal RAPID Negative (Negative)
== END ==
PROVIDERS: Family Provider Internal Medicine; PCP Internal Medicine; Visit Provider Physician Assistant
DX: Z01.812 Encounter for preprocedural laboratory examination (principal); Z20.828 Contact with and (suspected) exposure to other viral communicable diseases
CPT/HCPCS: 87635; C9803

== ENCOUNTER → 2020-05-17 14:58 | Outpatient (CLI) | payer MEDICARE, OTHER, SELFPAY ==
[2020-01-17 22:29] VITALS: BMI 27.4
[2020-05-17 16:11] LABS: COVID19 -Nasal RAPID Negative (Negative)
== END ==
PROVIDERS: Family Provider Internal Medicine; PCP Internal Medicine; Visit Provider Surgery
DX: Z01.812 Encounter for preprocedural laboratory examination (principal); Z20.822 Contact with and (suspected) exposure to COVID-19
CPT/HCPCS: 87635; C9803

== ENCOUNTER 2020-05-18 10:29 | Day surgery (SDC) | payer MEDICARE, OTHER, SELFPAY ==
[2020-01-17 22:29] VITALS: BMI 27.4
[2020-05-12 14:36] VITALS: BMI 27.3
[2020-05-18] VITALS (8 sets, daily range): BP systolic 119–134; BP diastolic 50–81; PULSE 65–82; RESP 10–18; TEMP 36.2–37.7; O2SAT 95–100; BMI 26.5
--- NOTE | 2020-05-18 | PATH_ITS ---
[facility] Accession Number: [id number] . 01 Material submitted: . gallbladder - GALLBLADDER . 01 Clinical history: . LAP OCTAVIA W/POSS IOC . 02 Diagnosis: Gallbladder, Cholecystectomy: Chronic cholecystitis and cholesterolosis. MRV 05/23/2020 1302 Local . 02 Electronically signed: . Rosalinda Davila MD, Pathologist NPI- [id number] . 01 Gross description: . The specimen is received in formalin, labeled gallbladder and consists of an 8.0 x 3.0 x 2.2 cm intact gallbladder with a 0.2 cm in diameter cystic duct. The serosa is campo-green and smooth. Opening reveals green viscous bile with a 0.3 x 0.3 x 0.3 cm black bosselated cholelith within the neck of the specimen. The mucosa is campo-green and velvety and the wall thickness measures 0.1 cm. [employer] sections are submitted to include the en face cystic duct margin (blue) in cassette A1. ([id number]) /MRV 05/20/2020 1241 Local . 02 Pathologist provided ICD-10: K80.60 . 02 CPT . 937794 Performed at: 01 [facility] [address], [place], [place] [id number] MD Carlos Alexandre MD Phone: [phone] Performed at: 02 [facility] [address] [place], [place] [id number] MD Sweta Coates MD Phone: [phone]
[2020-05-18] MEDS: LACTATED RINGERS 1,000 ML 100 ML IV (11:05)
[2020-05-18] MEDS: Non-Formulary Medication (Indocyanine Green 25 MG) 25 EACH IV (11:08)
--- NOTE | 2020-05-18 11:28 | PM.PREOP ---
Pre-operative Note COVID-19 COVID-19 status: Negative Result date/Date tested (Pos, Neg/Pending): 05/17/19 Interval Note History & Physical reviewed/Exam performed by Physician: Yes Changes to H&P: No
[2020-05-18] MEDS: PIPERACILLIN-TAZO 3.375 GM/50 ML FROZ.PIGGY IV (11:40)
--- NOTE | 2020-05-18 12:00 | SUR.OPER ---
Supine on padded OR bed, head on pillow, arms secured on padded arm boards at <90 degrees abduction, legs uncrossed, safety belt at thigh, tape over blanket over lower legs.
[2020-05-18] MEDS: BUPIVACAINE 0.25% W/ EPI (PF) 10 ML VIAL 20 ML INJ (12:05)
--- NOTE | 2020-05-18 13:00 | P.OP_ITS ---
Operative Date/Time/Diagnoses Date of procedure: 05/18/20 Time of procedure: 13:00 Pre-op diagnosis: Symptomatic cholelithiasis Post-op diagnosis: same Procedure & Clinicians Procedure: Laparoscopic cholecystectomy, indocyanine green cholangiography Same procedure as scheduled: Yes Indications: Symptomatic cholelithiasis Surgeon: Daysi Rubio Anesthesia Type: General Operative Notes Findings: Mild inflammatory adhesions, otherwise normal-appearing gallbladder and bile ducts, good critical view of safety Specimen(s): other (Gallbladder and contents) Estimated Blood Loss (mL): 3 Procedure in detail: The patient was brought into the operating room and placed supine on the OR table. Sequential compression devices were placed on both legs and turned on. Appropriate perioperative antibiotics were given prior to the start of surgery. General anesthesia was induced the patient was intubated. The abdomen was prepped and draped in sterile fashion. Surgical time-out was conducted. Local anesthetic was injected under the skin just superior to the umbilicus and a 5 mm vertical incision was made at this site. The umbilical stalk was grasped with a Jolanta and elevated. A Veress needle was passed through the fascia into proper position. The position was tested with a saline drop test which was appropriate for intra-abdominal Veress needle placement. The abdomen was then insufflated in the usual fashion. Once insufflated to 15 mm Hg the Veress needle was removed and a 5 mm optical trocar was placed under direct vision using a 5 mm 30 degree scope. Once the camera was inside the abdomen I took a look around. There was no injury from port placement. Two additional ports were placed in a similar fashion in the right upper quadrant and a 10 mm port was placed in the epigastrium. Through the 2 lateral ports the gallbladder was grasped and elevated and the infundibulum was retracted laterally to the patient's right. This exposed the gallbladder hilum and allowed for dissection of the cystic duct and cystic artery. There was mild amount of inflammatory scar tissue throughout the gallbladder hil um. Using a [place] dissector and hook cautery, the cystic duct and artery were skeletonized. Once the cystic duct and artery were completely dissected out I was able to see liver behind and between both structures without any other structures in the way, giving us the critical view of safety. Indocyanine green cholangiography was used to confirm the position of the cystic duct, and this was consistent with the critical view. At this point I triply clipped both structures on the patient's side and put a single clip on the gallbladder side of both the cystic duct and artery. Both structures were then divided with laparoscopic Lawson. An additional small arterial branch was doubly clipped on the patient's side and divided with Lawson. Following this the gallbladder was gradually dissected free from the liver. There some small veins in the tissue between the gallbladder and the liver. These were controlled with cautery. Once the gallbladder was entirely freed, it was placed inside an Endo-Catch bag and removed through the epigastric port site. I did not have to enlarge the epigastric site in order to get the gallbladder out. Once it was out and passed off to the back table I then took another look inside the abdomen. I suctioned clean any remaining blood or fluid on the lateral side of the liver and in the subhepatic space. There was no active bleeding or leaking of bile from the gallbladder fossa or from the clipped stumps of the cystic duct and artery. I closed the epigastric port site with the Stephane-Sury suture Passer using 0 Vicryl. At this point the insufflation was removed from the abdomen and the epigastric port site was closed with 3 O Vicryl in the subcutaneous layers, and 4 Monocryl in the skin. The remaining port sites were closed with 4 Monocryl in the skin. Each port site was sealed with Dermabond. Local anesthetic was given at each of the port sites and in the fascia. This concluded the procedure. At this point the needle sponge and instrument counts were correct x2. The gallbladder was passed off the table for pathology. Patient was awakened from anesthesia and extubated. She was transferred to the postanesthesia care unit in stable condition. Complications: none Post-operative Condition: stable Disposition: PACU
--- NOTE | 2020-05-18 13:16 | SUR.PHASEI ---
1312 Arousing spontaneously; airway dc'd, eyes open. did not respond to questions about pain/nausea. returned to sleep. skin warm and dry, resp even and regular
== END 2020-05-18 14:08 | disposition home or self-care (01) ==
PROVIDERS: Family Provider Internal Medicine; PCP Internal Medicine; Referring Provider Surgery; Visit Provider Surgery
PROC: 0FT44ZZ Resection of Gallbladder, Percutaneous Endoscopic Approach (ICD-10-PCS; CPT 47562; principal; 2020-05-18 11:45)
DX: K80.10 Calculus of gallbladder with chronic cholecystitis without obstruction (principal); E78.00 Pure hypercholesterolemia, unspecified; K82.8 Other specified diseases of gallbladder
CPT/HCPCS: 47563; 82962; J1100; J2250; J2405; J2543; J3010

== ENCOUNTER → 2020-10-05 18:41 | Outpatient (ROUT) | payer MEDICARE, OTHER, SELFPAY ==
[2020-01-17 22:29] VITALS: BMI 27.4
[2020-10-05 18:56] LABS: Alanine Aminotransferase 17 IU/L (<35); Albumin 4.1 g/dL (3.5-5.0); Albumin Globulin Ratio 1.4 (1.0-2.8); Alkaline Phosphatase 74 U/L (38-126); Aspartate Aminotransferase 30 IU/L (14-36); BUN Creatinine Ratio 23.5 (6-22); Bilirubin Total 0.6 mg/dL (0.2-1.3); Blood Urea Nitrogen 20 mg/dL (7-17); Calcium 9.8 mg/dL (8.4-10.2); Carbon Dioxide 27 mmol/L (22-32); Chloride 102 mmol/L (98-107); Estimated Glomerular Filt Rate > 60.0 mL/min (>60); Globulin 2.9 g/dL (1.7-4.1); Glucose 84 mg/dL (80-110); HEMOLYSIS < 15 (0-50); Potassium 4.6 mmol/L (3.4-5.1); Sodium 137 mmol/L (137-145)
== END ==
PROVIDERS: Family Provider Internal Medicine; PCP Internal Medicine; Visit Provider Internal Medicine
DX: R10.13 Epigastric pain (principal)
CPT/HCPCS: 80053

== ENCOUNTER → 2020-10-07 14:50 | Outpatient (CLI) | payer MEDICARE, OTHER, SELFPAY ==
[2020-01-17 22:29] VITALS: BMI 27.4
--- NOTE | 2020-10-07 | DI.CT.S_ITS ---
PROCEDURE: CT ABDOMEN W CON INDICATIONS: Epigastric pain TECHNIQUE: After the administration of oral and intravenous contrast, 5 mm thick sections acquired from the diaphragms to the iliac crests. 5 mm thick coronal and sagittal reformats were acquired. For radiation dose reduction, the following was used: automated exposure control, adjustment of mA and/or kV according to patient size. COMPARISON: [facility], , US ABDOMEN COMPLETE, 02/26/2020, 8:57. FINDINGS: Image quality: Excellent. Lung bases: Lung bases are clear. Heart size is normal. Solid organs: Liver is normal in size and enhancement. Gallbladder has been resected . Biliary system is non dilated. Pancreas enhances normally. Spleen is normal in size and enhancement. No adrenal nodules. Kidneys are normal in size, without hydronephrosis. Peritoneum and bowel: Contrast enhanced bowel loops appear normal in caliber. No free fluid or air. There is generalized colonic obstipation, moderate in severity. Nodes and vessels: No retroperitoneal or mesenteric adenopathy by size criteria. Aorta and inferior vena cava are normal in size. Bones: No suspicious bony lesions. No vertebral body compression fractures. Miscellaneous: No ventral hernias. IMPRESSION: Prior cholecystectomy. No biliary distension found. Generalized colonic obstipation, right greater than left. Dictated by: Navi Healy M.D. on 10/07/2020 at 17:04 Approved by: Navi Healy M.D. on 10/07/2020 at 17:05
== END ==
PROVIDERS: Family Provider Internal Medicine; PCP Internal Medicine; Referring Provider Internal Medicine; Visit Provider Internal Medicine
DX: R10.13 Epigastric pain (principal); K56.41 Fecal impaction
CPT/HCPCS: 74160

== ENCOUNTER → 2021-08-10 13:55 | Outpatient (CLI) | payer MEDICARE, OTHER, SELFPAY ==
[2020-01-17 22:29] VITALS: BMI 27.4
== END ==
PROVIDERS: Family Provider Internal Medicine; PCP Internal Medicine; Referring Provider Internal Medicine; Visit Provider Internal Medicine
DX: Z78.0 Asymptomatic menopausal state (principal); Z13.820 Encounter for screening for osteoporosis
CPT/HCPCS: 77080; 77081

== ENCOUNTER → 2023-03-18 15:09 | Outpatient (CLI) | payer MEDICARE, OTHER, SELFPAY ==
[2020-01-17 22:29] VITALS: BMI 27.4
--- NOTE | 2023-03-18 | DI.MG.S_ITS ---
BILATERAL DIGITAL SCREENING MAMMOGRAM 3D/2D WITH CAD: 03/18/2023 CLINICAL: Routine screening. Family history of breast cancer. Comparison is made to exams dated: 03/14/2022 mammogram, 03/13/2021 mammogram, and 02/13/2020 mammogram - outside location. There are scattered areas of fibroglandular density in both breasts (category b / 25%-50% glandular tissue). Current study was also evaluated with a Computer Aided Detection (CAD) system. No significant masses, calcifications, or other findings are seen in either breast. There has been no significant interval change. IMPRESSION: NEGATIVE There is no mammographic evidence of malignancy. A 1 year screening mammogram is recommended. Based on the Tyrer Cuzick model (a risk assessment model) the patient's lifetime risk is 4.1% and her 10 year risk is 2.6%. According to the ACR, ACS, and NCCN guidelines, an annual breast MRI exam along with mammogram is recommended if the patient's lifetime risk is 20% or greater. This exam was interpreted at Station ID: [id number]. NOTE: For mammograms, a report in lay terms will be sent to the patient. Approximately 15% of breast malignancies will not be visualized mammographically. In the management of a palpable breast mass, a negative mammogram must not discourage biopsy of a clinically suspicious lesion. Electronically Signed By: Roney enrique/enmanuel:03/19/2023 12:29:35 letter sent: Normal Exam ACR BI-RADS Category 1: Negative [id number]
== END ==
PROVIDERS: PCP Internal Medicine; Referring Provider Internal Medicine; Visit Provider Internal Medicine
DX: Z12.31 Encounter for screening mammogram for malignant neoplasm of breast (principal); Z80.3 Family history of malignant neoplasm of breast
CPT/HCPCS: 77063; 77067

== ENCOUNTER → 2024-03-19 15:28 | Outpatient (CLI) | payer MEDICARE, OTHER, SELFPAY ==
[2020-01-17 22:29] VITALS: BMI 27.4
--- NOTE | 2024-03-19 15:29 | DI.MG.S_ITS ---
BILATERAL DIGITAL SCREENING MAMMOGRAM 3D/2D WITH CAD: 03/19/2024 CLINICAL: Routine screening. Family history of breast cancer. Comparison is made to exams dated: 03/18/2023 mammogram - [facility], 03/14/2022 mammogram, and 03/13/2021 mammogram - outside location. There are scattered areas of fibroglandular density (category b / 25%-50% glandular tissue). Current study was also evaluated with a Computer Aided Detection (CAD) system. No significant masses, calcifications, or other findings are seen in either breast. There has been no significant interval change. IMPRESSION: NEGATIVE There is no mammographic evidence of malignancy. A 1 year screening mammogram is recommended. Based on the Tyrer Cuzick model (a risk assessment model) the patient's lifetime risk is 3.9% and her 10 year risk is 2.6%. According to the ACR, ACS, and NCCN guidelines, an annual breast MRI exam along with mammogram is recommended if the patient's lifetime risk is 20% or greater. This exam was interpreted at Station ID: [id number]. NOTE: For mammograms, a report in lay terms will be sent to the patient. Approximately 15% of breast malignancies will not be visualized mammographically. In the management of a palpable breast mass, a negative mammogram must not discourage biopsy of a clinically suspicious lesion. Electronically Signed By: Elias [email or web address]/enmanuel:03/20/2024 22:24:37 letter sent: Normal Exam ACR BI-RADS Category 1: Negative
== END ==
PROVIDERS: PCP Internal Medicine; Referring Provider Internal Medicine; Visit Provider Internal Medicine
DX: Z12.31 Encounter for screening mammogram for malignant neoplasm of breast (principal); Z80.3 Family history of malignant neoplasm of breast
CPT/HCPCS: 77063; 77067

== ENCOUNTER → 2024-05-15 12:58 | Outpatient (CLI) | payer MEDICARE, OTHER, SELFPAY ==
[2020-01-17 22:29] VITALS: BMI 27.4
--- NOTE | 2024-05-15 13:00 | DI.RAD.S_ITS ---
PROCEDURE: XR FOOT RT MIN 3V INDICATIONS: FOOT PAIN TECHNIQUE: 3 views of the foot were acquired. COMPARISON: None. FINDINGS: Bones: No fractures or dislocations. Osteoarthritic changes are noted throughout right foot most notably in 1st MTP joint and 1st interphalangeal joint. Prominent dorsal marginal osteophyte formation at 1st MTP joint, concerning for hallux limitus. No suspicious bony lesions. Soft tissues: No tibiotalar joint effusion. Achilles tendon appears normal. IMPRESSION: Osteoarthritis throughout right foot most notably in great toe with suggestion of early hallux limitus as above. No acute fracture or dislocation. Dictated by: Chase Jacobson M.D. on 05/15/2024 at 15:24 Approved by: Chase Jacobson M.D. on 05/15/2024 at 15:25
== END ==
PROVIDERS: PCP Internal Medicine; Referring Provider Podiatrist Foot & Ankle Surgery; Visit Provider Podiatrist Foot & Ankle Surgery
DX: M19.071 Primary osteoarthritis, right ankle and foot (principal); M79.672 Pain in left foot
CPT/HCPCS: 73630

== ENCOUNTER → 2025-04-03 13:01 | Outpatient (CLI) | payer MEDICARE, OTHER, SELFPAY ==
[2025-02-25 15:08] VITALS: BMI 27.4
--- NOTE | 2025-04-03 13:04 | DI.MG.S_ITS ---
MM screening mammo BI: 04/03/2025. BI-RADS: 1 CLINICAL: 75-year old female for bilateral screening mammogram. Tyrer-Cuzick lifetime risk of 5.4%. No personal or first-degree family history of breast cancer. Current reported family history of breast cancer: maternal grandmother. PRIOR EXAMS 03/19/2024, 03/18/2023, 02/20/2016. MAMMOGRAPHY TECHNIQUE: 2D and 3D (tomosynthesis) digital mammographic views obtained, with additional images as needed for full coverage. Current study was also evaluated with a Computer Aided Detection (CAD) system. DENSITY B. There are scattered areas of fibroglandular density. MAMMOGRAPHY FINDINGS Bilateral: No suspicious mass, asymmetry, microcalcification, or other abnormality seen. IMPRESSION: * No evidence of malignancy. RECOMMENDATIONS Bilateral * Annual screening mammography. OVERALL ASSESSMENT CATEGORY BI-RADS-1: Negative. The [employer] recommends annual screening mammography beginning at age 40 for women with average risk of breast cancer. ELECTRONICALLY SIGNED: Elias Rowan M.D. on 04/05/2025 at 10:01:42 AM PT Interpreting Station ID: [id number]
== END ==
LOC: MAMMO 13:03
PROVIDERS: PCP Internal Medicine; Referring Provider Internal Medicine; Visit Provider Internal Medicine
DX: Z12.31 Encounter for screening mammogram for malignant neoplasm of breast (principal); Z80.3 Family history of malignant neoplasm of breast
CPT/HCPCS: 77063; 77067